=== PATIENT | female | born 1945 | race Caucasian/White ===

== ENCOUNTER 2023-10-05 08:03 | Inpatient (IN) | payer OTHER ==
[~2023-10-05] VITALS: Ht 160 cm; Wt 87.5 kg
[2023-10-05] MEDS: GABAPENTIN 300 MG CAPSULE PO ONE (06:00)
[2023-10-05] MEDS: CEFAZOLIN SOD 2 GM in D5W 50 ML IV ONE (06:00)
[2023-10-05] MEDS: oxyCODONE HCL 10 MG TAB.ER.12H PO ONE ×2 (06:00→08:16)
[2023-10-05] MEDS: ACETAMINOPHEN 500 MG TABLET PO ONE (06:00)
[2023-10-05] MEDS: CELECOXIB 100 MG CAPSULE PO ONE (06:00)
[2023-10-05] MEDS: SCOPOLAMINE HYDROBROMIDE 1 MG PATCH .72 H (TRANSDERM-SCOP) TD ONE ×2 (06:00→08:58)
[2023-10-05] MEDS: ACETAMINOPHEN 500 MG TABLET ONE (08:16)
[2023-10-05] MEDS: GABAPENTIN 300 MG CAPSULE ONE (08:58)
[2023-10-05] MEDS: CELECOXIB 100 MG CAPSULE ONE (08:58)
[2023-10-05] MEDS ORDERED: ePHEDrine sulfate 50 MG/ML VIAL ONE (09:30)
[2023-10-05] MEDS ORDERED: ROCURONIUM BROMIDE 10 MG/ML (ZEMURON) ONE (09:30)
[2023-10-05] MEDS ORDERED: SUCCINYLCHOLINE CHLORIDE 20 MG/ML(QUELICIN) ONE (09:30)
[2023-10-05] MEDS ORDERED: LR 1,000 ML IV.SOLN IV ONE (09:30)
[2023-10-05] MEDS ORDERED: TRANEXAMIC ACID 1,000 MG/10 ML VIAL ONE (09:30)
[2023-10-05] MEDS ORDERED: WATER FOR IRRIGATION,STERILE 1,000 ML IRRIG.SOLN IR ONE (09:30)
[2023-10-05] MEDS ORDERED: NS IRRIG SOLN 1000 ML IR ONE (09:30)
[2023-10-05] MEDS ORDERED: MIDAZOLAM HCL 5 MG/5 ML VIAL ONE (09:30)
[2023-10-05] MEDS ORDERED: GLYCOPYRROLATE 0.2 MG/ML VIAL ONE (09:30)
[2023-10-05] MEDS ORDERED: BUPIVACAINE /PF 0.25% 30 ML VIAL INJ ONE (09:30)
[2023-10-05] MEDS ORDERED: SEVOFLURANE 15 MIN GAS INH ONE (09:30)
[2023-10-05] MEDS ORDERED: PROPOFOL 200MG/ 20ML VIAL (DIPRIVAN) IV ONE (09:30)
[2023-10-05] MEDS ORDERED: DEXAMETHASONE SOD PHOSPHATE 4 MG/ML VIAL ONE (09:30)
[2023-10-05] MEDS ORDERED: VANCOMYCIN HCL 1000 MG/VIAL IV ONE (09:30)
[2023-10-05] MEDS ORDERED: ONDANSETRON HCL 4 MG/2 ML VIAL ONE (09:30)
[2023-10-05] MEDS: HYDROmorphone 2 MG/ML VIAL ONE (09:37)
[2023-10-05] MEDS ORDERED: NALOXONE HCL 0.4 MG/ML AMP (NARCAN) IVP PRN ×5 (10:00→11:45)
[2023-10-05] MEDS ORDERED: DIPHENHYDRAMINE HCL 25 MG CAPSULE PO PRN (10:00)
[2023-10-05] MEDS ORDERED: BISACODYL 10 MG/SUPPOSITORY RC PRN (10:00)
[2023-10-05] MEDS ORDERED: METOCLOPRAMIDE HCL 10 MG/2 ML VIAL IVP PRN ×2 (10:00→11:45)
[2023-10-05] MEDS ORDERED: LACTULOSE 20 GM/30 ML UDC PO PRN (10:00)
[2023-10-05] MEDS ORDERED: HYDROmorphone 1 MG/ML INJ. CARTRIDGE IVP PRN ×2 (11:00→11:45)
[2023-10-05] MEDS ORDERED: LORATADINE 10 MG TABLET PO PRN (11:00)
[2023-10-05] MEDS ORDERED: HYDR12.585 PO (11:06)
[2023-10-05] MEDS ORDERED: LEVO137T2 PO (11:06)
[2023-10-05] MEDS ORDERED: SIMV-341 PO (11:06)
[2023-10-05] MEDS ORDERED: DICY-14 PO (11:06)
[2023-10-05] MEDS ORDERED: PRO40 PO (11:06)
[2023-10-05] MEDS ORDERED: HYDR-3927 PO (11:06)
[2023-10-05] MEDS ORDERED: NOR10 PO (11:06)
[2023-10-05] MEDS ORDERED: GABA800T PO (11:06)
[2023-10-05] MEDS ORDERED: SEMA2PEN SUBCUT (11:06)
[2023-10-05] MEDS ORDERED: METF-379 PO (11:06)
[2023-10-05] MEDS ORDERED: LOSA-415 PO (11:06)
[2023-10-05] MEDS: ACETAMINOPHEN I.V. 1000 MG 100 ML IV ONE (11:07)
[2023-10-05] MEDS: fentaNYL CITRATE/PF 100 MCG/2 ML AMP ONE ×2 (11:07→13:20)
[2023-10-05] MEDS ORDERED: ONDANSETRON HCL 4 MG/2 ML VIAL IVP PRN (11:45)
[2023-10-05] MEDS: ONDANSETRON HCL 4 MG/2 ML VIAL ONE (12:49)
[2023-10-05] MEDS: HYDROmorphone 1 MG/ML INJ. CARTRIDGE ONE (12:49)
[2023-10-05] MEDS: HYDROmorphone 1 MG/ML INJ. CARTRIDGE IVP PRN ×3 (12:55→17:50)
[2023-10-05] MEDS: ONDANSETRON HCL 4 MG/2 ML VIAL IVP PRN (12:55)
[2023-10-05] MEDS: fentaNYL CITRATE/PF 100 MCG/2 ML AMP IVP PRN (13:25)
[2023-10-05 14:00] VITALS: BP_SYST 113; PULSE 72; RESP 15; TEMP 96.6; O2SAT 99
[2023-10-05 14:21] VITALS: BP_SYST 113; PULSE 72; RESP 15; TEMP 96.6; O2SAT 99
[2023-10-05] MEDS: KETOROLAC TROMETHAMINE 10 MG TABLET (TORADOL) PO SCH (15:25)
[2023-10-05] MEDS: ACETAMINOPHEN 500 MG TABLET PO SCH (15:26)
[2023-10-05] MEDS: ceFAZolin SODIUM 2 GM in D5W 50 ML IV SCH (16:06)
[2023-10-05 20:00] VITALS: BP_SYST 112; PULSE 76; RESP 18; TEMP 97.1; O2SAT 96
[2023-10-05] MEDS: SENNOSIDES/DOCUSATE SODIUM 1 TAB TABLET(SENOKOT-S) PO SCH (20:45)
[2023-10-05] MEDS: oxyCODONE HCL 5 MG TABLET PO PRN (23:57)
[2023-10-06] VITALS: BP_SYST 110; PULSE 69; RESP 18; TEMP 97.2; O2SAT 95
[2023-10-06 00:14] VITALS: BP_SYST 120; PULSE 85; RESP 16; TEMP 97.8; O2SAT 97
[2023-10-06 06:25] LABS: BASOPHILS % (AUTO) 0.1 % (0.0-2.0); HEMOGLOBIN 10.2 g/dL (12.0-16.0); LYMPHOCYTES # (AUTO) 1.6 K/uL (1.0-5.5); MEAN CORPUSCULAR HEMOGLOBIN 30 pg (27-31); MEAN CORPUSCULAR HGB CONC 34 % (32-36); MEAN CORPUSCULAR VOLUME 89 fL (79.0-98.0); MONOCYTES # (AUTO) 0.8 K/uL (0.0-1.0); MONOCYTES % (AUTO) 5.9 % (1.7-9.3); NEUTROPHILS # (AUTO) 10.9 K/uL (1.8-7.7); PLATELET COUNT (AUTO) 203 K/uL (130-430); RED BLOOD CELL COUNT(AUTO) 3.35 MIL/uL (4.2-6.2); RED CELL DISTRIBUTION WIDTH 13.3 % (9.0-15.0); WHITE BLOOD COUNT (AUTO) 13.3 K/uL (4.8-10.8)
[2023-10-06 07:03] LABS: ALANINE AMINOTRANSFERASE 15 U/L (12-78); ALBUMIN 2.5 g/dL (3.4-4.8); ANION GAP 10 (5-15); ASPARTATE AMINOTRANSFERASE 14 U/L (10-37); CALCIUM 8.4 mg/dL (8.4-11.0); CARBON DIOXIDE 27 mmol/L (23-29); CHLORIDE 102 mmol/L (98-107); CREATININE 1.05 mg/dL (0.55-1.30); GLUCOSE 229 mg/dL (74-106); POTASSIUM 3.2 mmol/L (3.5-5.1); SODIUM SERUM 139 mmol/L (136-145); TOTAL BILIRUBIN 0.3 mg/dL (0.0-1.0); TOTAL PROTEIN, SERUM 6.1 g/dL (6.4-8.3); UREA NITROGEN, BLOOD 20 mg/dL (8-21)
[2023-10-06] MEDS ORDERED: DEXTROSE 50% JECT 50 ML DISP.SYRIN IVP PRN (07:45)
[2023-10-06] MEDS ORDERED: D5W 1,000 ML IV PRN (07:45)
[2023-10-06] MEDS ORDERED: GLUCOSE (DEXTROSE) ORAL GEL -Adults PO PRN (07:45)
[2023-10-06 08:00] VITALS: BP_SYST 110; PULSE 59; RESP 18; TEMP 97.1; O2SAT 99
[2023-10-06] MEDS ORDERED: NON-FORMULARY MEDICATION (Losartan Potassium (Cozaar) 100 MG) PO SCH (09:00)
[2023-10-06] MEDS: traMADol HCL HCL 50 MG TABLET (ULTRAM) PO PRN (09:44)
[2023-10-06] MEDS: POTASSIUM CHLORIDE 20 MEQ/PKT PACKET PO ONE (09:50)
[2023-10-06] MEDS: LOSARTAN POTASSIUM 50 MG TABLET (COZAAR) PO SCH (09:51)
[2023-10-06] MEDS: amLODIPine BESYLATE 10 MG TABLET PO SCH (09:52)
[2023-10-06] MEDS: ASPIRIN 81 MG TAB.CHEW PO SCH (09:53)
[2023-10-06] MEDS: CELECOXIB 200 MG CAPSULE PO SCH (10:26)
[2023-10-06] MEDS: LEVOTHYROXINE SODIUM 0.137 MG TABLET PO ONE (10:27)
[2023-10-06 11:24] VITALS: BP_SYST 104; PULSE 66; RESP 16; TEMP 97.8; O2SAT 97
[2023-10-06 11:35] VITALS: BP_SYST 104; PULSE 66; RESP 16; TEMP 97.8; O2SAT 97
[2023-10-06] MEDS: INSULIN REGULAR, HUMAN 100 UNITS/ML, 3 ML VIAL (humuLIN R) SUBCUT PRN (11:56)
[2023-10-06] MEDS: oxyCODONE HCL 5 MG TABLET PO PRN (13:22)
[2023-10-07] MEDS ORDERED: LEVOTHYROXINE SODIUM 0.137 MG TABLET PO SCH (07:00)
== END 2023-10-06 13:30 | disposition home or self-care (01) | DRG 470 ==
LOC: SMU 08:03
PROVIDERS: ADMIT Student in an Organized Health Care Education/Training Program; ATTEND Student in an Organized Health Care Education/Training Program
PROC: 0SR904A Replacement of Right Hip Joint with Ceramic on Polyethylene Synthetic Substitute, Uncemented, Open Approach (ICD-10-PCS; principal; 2023-10-05 09:47)
DX: M16.11 Unilateral primary osteoarthritis, right hip (principal); Z79.899 Other long term (current) drug therapy
CPT/HCPCS: 36415; 72170-TC; 80053; 82948; 85025; 87081; 88304; 88311; 96379; 97110-GP; 97116-GP; 97530-GP; A4649; C1713; C1776; J0131; J0330; J0690; J1100; J1170; J1815; J2250; J2405; J2704; J3010; J3370; J3490; J7060; J7120